=== PATIENT | male | born 1960 | race Caucasian/White ===

== ENCOUNTER → 2018-11-23 | Day surgery (SDC) | payer OTHER ==
[~2018-11-23] MED LIST: ALLOPURINOL100 MG PO; EFFEXOR XR75 MG PO; FENTANYL CITRATE/PF 100MCG/2 ML INJ ONE; GLUCAGON FOR INJ 1 MG VIAL ONE; HYDROCHLOROTH12.5 M1 PO; HYOSCYAMINE SULFATE 0.5 MG/ML INJ ONE; KETAMINE HCL INJ 50 MG/ML 10 ML VIAL ONE; LISINOPRIL5 MG PO; MIDAZOLAM HCL 5MG/ML 2ML VIAL ONE; PROPOFOL IV EMULSION 10 MG/ML 50 ML VIAL ONE
--- OUTSIDE RECORDS SUMMARY | 2018-11-23 10:28 | XMS REPORT | Summary of Care ---
Author Author LAURA BATES N.P. Organization Unknown Address Unknown Phone Unavailable Care Team Providers Care Repair Operator Name Role Phone LAURA BATES N.P. Unavailable Unavailable DAGMAR Moe, SHAN Unavailable Unavailable KAMRAN JESSICA NC, CONSTANTIN VASQUEZ Unavailable Unavailable KAMRAN Espinoza, CONSTANTIN Unavailable Unavailable Unavailable Unavailable Functional Status Name Dates Details Functional status health issues are not documented Status: Name Dates Details Cognitive status health issues are not documented Status: Problems Name Dates Details Influenza vaccine needed (V04.81, Z23) Status: Active Screening for colon cancer (V76.51, Z12.11) Status: Active Noncompliance with treatment (V15.81, Z91.19) Status: Active Anxiety disorder (300.00, F41.9) Status: Active Seasonal allergic rhinitis, unspecified trigger (477.9, J30.2) Status: Active 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, 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 Alcohol cessation counseling Status: Active Alcohol consumption heavy (V69.8, Z78.9) Status: Active Abnormal liver enzymes (790.5, R74.8) Status: Active Essential hypertension (401.9, I10) Status: Active PTSD (post-traumatic stress disorder) (309.81, F43.10) Status: Active Prostate cancer screening (V76.44, Z12.5) Status: Active Diverticulitis, colon (562.11, K57.32) Status: Active Nausea and vomiting (787.01, R11.2) Status: Active Medications Name Dates Details Lisinopril 10 MG Oral Tablet TAKE 1 TABLET BY MOUTH EVERY DAY- needs office visit regarding update on meds Quantity: 30 LAURA BATES N.P. * Start : 01-Nov-2018 Active Venlafaxine HCl ER 150 MG Oral Capsule Extended Release 24 Hour TAKE ONE CAPSULE BY MOUTH ONCE DAILY, * Quantity: 90 Refills: 1 LAURA BATES N.P. * Start : 08-Jul-2015 Active ALPRAZolam 1 MG Oral Tablet 1/2 - 1 tablet BID prn * Quantity: 30 Refills: 1 LAURA BATES N.P. Active Allopurinol 100 MG Oral Tablet TAKE 1 TABLET BY MOUTH TWICE A DAY- needs office visit regarding update on m eds * Quantity: 60 Refills: 0 PAULO N.P., LAURA * Start : 01-Nov-2018 Active Acamprosate Calcium 333 MG Oral Tablet Delayed Release TAKE 1 TABLET BY MOUTH THREE TIMES A DAY- NEEDS 6 MONTH FOLLOW UP WITH * Quantity: 90 Refills: 0 PAULO N.P., LAURA * Start : 01-Nov-2018 Active Ondansetron 8 MG Oral Tablet Disintegrating Q8hr prn * Quantity: 30 Refills: 0 DAGMAR D.OSHAN Jones * Start : 12-Sep-2018 Active Allergies and Adverse Reactions Name Dates Details No Known Drug Allergies (Allergy) Status: Active Past Medical History Name Dates Details Influenza vaccine needed (V04.81, Z23) Status: Active History of acute bronchitis (V12.69, Z87.09) Status: Resolved History of Acute upper respiratory infection (465.9, J06.9) Status: Resolved History of Anxiety (300.00, F41.9) Status: Resolved History of Dysthymic Disorder (V11.2) Status: Resolved History of Foreign body of left ear, initial encounter (931, T16.2XXA) Status: Resolved History of hyperlipidemia (V12.29, Z86.39) Status: Resolved History of insomnia (V13.89, Z87.898) Status: Resolved Procedures Procedure Dates Details History of Appendectomy Completed History of Shoulder Surgery Left Completed History of Total Knee Replacement Right Completed History of Knee Surgery Left Completed History of Tonsillectomy Completed Immunization Name Dates Details Fluzone INJ Lot #: [id number] on: 27-Nov-2013 Fluzone Quadrivalent 0.5 ML Intramuscular Suspension Lot #: [id number] on: 14-Oct-2015 Family History Name Dates Details Family history of emphysema (V17.6, Z82.5) Status: Active Name Dates Details Family history of myocardial infarction (V17.3, Z82.49) Status: Active Family history of cerebrovascular accident (V17.1, Z82.3) Status: Active Social History Name Dates Details - Status: Name Dates Details Never smoker Vital Signs Date Test Result Details No Known Vitals to report Results Date Description Value Details Results not documented Plan of Care Name Dates Details Planned Observations Planned Goals not documented Instructions Name Dates Details Instructions not documented Encounters Appointment; LAURA BATES NP Encounter Diagnosis: Problem not documented On: 26-Nov-2016 13:15 Appointment; SHAN LEAVITT D.O. Encounter Diagnosis: Problem not documented On: 12-Jan-2017 12:15 Appointment; SHAN LEAVITT D.O. Encounter Diagnosis: Problem not documented On: 04-Apr-2017 15:30 Appointment; LEOBARDO GARCIA M.D. Encounter Diagnosis: Problem not documented On: 20-Mar-2018 10:15 Appointment; LAURA BATES NP Encounter Diagnosis: Problem not documented On: 18-Apr-2018 17:00 Appointment; SHAN LEAVITT D.O. Encounter Diagnosis: Problem not documented On: 12-Sep-2018 10:15
[2018-11-23 14:00] VITALS: BP 134/81
[2018-11-23 14:04] LABS: WBC,FECAL (FECAL LACTOFERRIN) NEGATIVE (NEGATIVE)
--- NOTE | 2018-11-23 14:27 | Operative Report ---
DATE OF PROCEDURE: November 23, 2018 REFERRING PHYSICIAN: Dr. Franck Cortez. PROCEDURE PERFORMED: Colonoscopy and a polypectomy with biopsies. INDICATIONS FOR COLONOSCOPY: Surveillance colonoscopy, personal history of colon polyps, chronic diarrhea. MEDICATION: Patient was done under MAC. Please see anesthesiologist's note. PROCEDURE: With the patient in the left lateral decubitus position, flexible fiberoptic Olympus colonoscope was inserted into the rectum with ease and advanced all the way to the cecum. One polyp was snared from the cecum. The ileocecal valve was intubated and the scope was advanced into the terminal ileum. Biopsies were obtained. The scope was then withdrawn back into the colon. It was then withdrawn slowly and 2 minute polyps were hot biopsied from the ascending colon. The transverse appeared to be within normal limits. Mucosa overlying the left colon revealed some mild inflammatory changes and multiple random biopsies were obtained. Minimal early diverticular disease was noted in the sigmoid colon. There were some mild proctitis and biopsies were obtained. The scope was then retroflexed into the distal rectum and small internal hemorrhoids were noted, none of which was actively bleeding. The scope was then straightened out and it was subsequently withdrawn after securing an adequate stool specimen that was sent for the appropriate stool studies. Patient tolerated procedure well. IMPRESSION: 1. Cecal polyp, snared. 2. Ascending colon polyps times 2 hot biopsied. 3. Mild patchy left-sided colitis. 4. Minimal early diverticulosis. 5. Proctitis mild, biopsied. 6. Internal hemorrhoids, none actively bleeding. PLAN: Follow up histology. Follow up stool studies. Initiate Bentyl 20 mg one p.o. t.i.d. VSL#3 one p.o. daily. Patient might benefit from a followup colonoscopy in 3 to 5 years. Job#: [id number] cc:FRANCK CORTEZ MD
[2018-11-23 14:56] LABS: C DIFFICILE TOXIN A&B AMP PROB NEGATIVE (NEGATIVE)
== END | disposition home or self-care (01) ==
LOC: OR 10:25
PROVIDERS: ATTEND Internal Medicine Gastroenterology
DX: K51.50 Left sided colitis without complications (principal); D12.0 Benign neoplasm of cecum; D12.2 Benign neoplasm of ascending colon; K57.30 Diverticulosis of large intestine without perforation or abscess without bleeding; K62.89 Other specified diseases of anus and rectum; K64.8 Other hemorrhoids; I10 Essential (primary) hypertension; M10.9 Gout, unspecified; Z01.810 Encounter for preprocedural cardiovascular examination; F41.8 Other specified anxiety disorders; Z68.41 Body mass index [BMI] 40.0-44.9, adult; Z96.651 Presence of right artificial knee joint; Z83.79 Family history of other diseases of the digestive system
CPT/HCPCS: 45380; 45384; 45385; 83630; 83993; 87045; 87177; 87328; 87493; 93005; J1610; J1980; J2250